=== PATIENT | female | born 1960 | race Caucasian/White ===

== ENCOUNTER → 2020-09-17 10:12 | Outpatient (CLI) | payer OTHER, SELFPAY ==
[2020-09-17 23:58] LABS: SARS-CoV-2 RNA PCR Negative
== END ==
PROVIDERS: PCP Family Medicine; Visit Provider Family Medicine
DX: J20.9 Acute bronchitis, unspecified (principal); Z20.822 Contact with and (suspected) exposure to COVID-19
CPT/HCPCS: C9803; U0003; U0005

== ENCOUNTER 2021-04-21 07:41 | Outpatient (CLI) | payer OTHER, SELFPAY ==
--- NOTE | ~2021-04-21 | MM_ITS ---
EXAMINATION: MM screening vinny BI w eliot HISTORY: Screening mammogram TECHNIQUE: Craniocaudal and mediolateral oblique 3-D tomosynthesis images were obtained and synthetic 2-D images were generated. CAD analysis was submitted and interpreted. COMPARISON: 06/14/2019, 06/01/2018, 05/21/2017 bilateral digital screening mammogram examinations BREAST PARENCHYMAL COMPOSITION: There are scattered areas of fibroglandular density. FINDINGS: There is no evidence of suspicious mass, calcification, or architectural distortion to sugg est malignancy in either breast. There has been no suspicious interval change. IMPRESSION: 1. No mammographic evidence of malignancy. 2. Recommend routine screening mammography in one year. BI-RADS Category 1: Negative Reviewed, dictated and finalized at location A.
== END 2021-04-21 07:42 | disposition home or self-care (01) ==
LOC: ANHIMG 07:42
PROVIDERS: PCP Family Medicine; Visit Provider Obstetrics & Gynecology
DX: Z12.31 Encounter for screening mammogram for malignant neoplasm of breast (principal)
CPT/HCPCS: 77063; 77067

== ENCOUNTER → 2021-07-29 10:08 | Outpatient (CLI) | payer OTHER, SELFPAY ==
--- NOTE | ~2021-07-29 | XR_ITS ---
EXAMINATION: XR hand RT min 3V EXAM DATE: 07/29/2021 10:22 INDICATION: Pain in right hand in area of 2 3 MP joints/no known trauma. TECHNIQUE: Right hand frontal, lateral and oblique projections obtained and reviewed. There is no pr ior study for comparison. FINDINGS: Right metacarpal bones are unremarkable. There is mild to moderate 3rd MCP, mild 2nd MCP p rimary osteoarthritis. There are no bony erosions identified. There are no acute fractures or disloc ations identified. There is no subcutaneous gas. The soft tissue is unremarkable. There are no ra diopaque foreign bodies. 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 Reviewed, dictated and finalized at location A. K PRESS OPERATOR
== END ==
PROVIDERS: PCP Family Medicine; Visit Provider Family Medicine
DX: M19.041 Primary osteoarthritis, right hand (principal)
CPT/HCPCS: 73130

== ENCOUNTER → 2022-02-24 10:06 | Outpatient (CLI) | payer OTHER, SELFPAY ==
--- NOTE | ~2022-02-24 | XR_ITS ---
EXAMINATION: XR chest 2V DATE: 02/24/2022 10:24 INDICATION: Chronic cough. TECHNIQUE: Frontal and lateral views of the chest were obtained. COMPARISON: Chest 2 views 01/27/2016 FINDINGS: A calcified left lung nodule and calcified left hilar lymph nodes are consistent with old g ranulomatous disease. There is mild scarring at the lung apices. No pleural effusion or pneumothorax. The heart size is normal. IMPRESSION: 1. Stable mild scarring at the lung apices. Reviewed, dictated and finalized at location A.
== END ==
PROVIDERS: PCP Family Medicine; Visit Provider Family Medicine
DX: R05.3 Chronic cough (principal); R91.8 Other nonspecific abnormal finding of lung field
CPT/HCPCS: 71046

== ENCOUNTER 2022-03-26 13:24 | Outpatient (CLI) | payer OTHER, SELFPAY ==
--- NOTE | ~2022-03-26 | CT_ITS ---
EXAMINATION: CT lung screening DATE: 03/26/2022 14:58 INDICATION: Tobacco dependence TECHNIQUE: Computed tomography (CT) of the chest was performed without intravenous contrast. The dose -length product was 429.73 mGy-cm. Automated exposure control and iterative reconstruction technique were employed. COMPARISON: CT dated 05/06/2015 FINDINGS: No thoracic lymphadenopathy. Heart size is normal. No significant pleural or pericardial ef fusion. There is atherosclerosis of the aorta and coronary arteries. The upper abdomen is unremarkabl e. Stable fissural nodule on the right measuring 5 mm. Stable apical scarring and parenchymal nodules measuring 5 mm or less. There are calcified granulomas in the left lower lung. There are left-sided fissural nodules measuring 3 mm stable 3 mm left lower lobe nodule. No endobronchial lesions. No pneu mothorax. No focal airspace consolidation. IMPRESSION: 1. Lung-RADS category 2: Benign appearance or behavior. Continue annual screening with noncontrast lo w-dose chest CT in 12 months. Reviewed, dictated and finalized at location A. IMPRESSION: 1. Lung-RADS category 2: Benign appearance or behavior. Continue annual screeni ng with noncontrast low-dose chest CT in 12 months.
--- NOTE | 2022-03-26 16:12 | WPDPFTINT ---
PFT Procedure Performed PFT Procedure Performed Spirometry with Pre/Post Bronchodilator Plethysmography (Lung Vol) Diffusing Cap (DLCO) Flow Vol Loop PFT Interpretation This is a pulmonary function test with pre and post-bronchodilator spirometry, plethysmography and diffusing capacity. The test was performed and results interpreted in accordance with the 2019 and 2005 ATS/ERS Task Force guidelines respectively using the Global Lung Function Initiative-2012 reference equations. Patient demonstrated good effort and cooperation. Reproducibility criteria were met. The quality of the pre bronchodilator spirometry maneuver was Grade A and post bronchodilator spirometry maneuver was Grade A. Findings: Spirometry: There is decreased maximal expiratory airflow at low lung volumes with concave expiratory flow tracing. The contour the inspiratory flow tracing is normal. The pre bronchodilator FVC is 3.50 L, 114% predicted. The pre bronchodilator FEV1 is 2.26 L, 93% predicted. The pre bronchodilator FEV1: FVC ratio 65%. The post bronchodilator FVC is 3.58 L, representing a 2% increase. The post bronchodilator FEV1 is 2.28 L, representing 1% increase. The post bronchodilator FEV1: FVC ratio 64%. Plethysmography: The total lung capacity is 3.93 L, 80% predicted. The functional residual capacity is 1.71 L, 62% predicted. The residual volume is 0.43 L, 22% predicted. Diffusion capacity: The diffusion capacity unadjusted for hemoglobin and carboxyhemoglobin is 18.3, 86% predicted. The diffusing capacity adjusted for alveolar volume is 3.96, 88% predicted. Impression: There is a mild obstructive abnormality with a normal FEV1 and without significant improvement after inhaling a single dose of albuterol. The total lung capacity and functional residual capacity are normal with a decreased residual volume. This is an abnormal but nonspecific lung volume pattern. The DLCO is normal. There are no prior studies for comparison
== END 2022-03-26 13:25 | disposition home or self-care (01) ==
LOC: ANHPFT 13:25
PROVIDERS: PCP Family Medicine; Visit Provider Physician Assistant
DX: J44.9 Chronic obstructive pulmonary disease, unspecified (principal); R05.3 Chronic cough; Z87.891 Personal history of nicotine dependence; R94.2 Abnormal results of pulmonary function studies
CPT/HCPCS: 71271; 94060; 94726; 94729

== ENCOUNTER 2022-08-13 10:16 | Outpatient (CLI) | payer OTHER, SELFPAY ==
--- NOTE | 2022-08-13 10:30 | ECG_ITS ---
Measurements Intervals [place] Rate: 72 P: 54 CA: 161 QRS: 22 QRSD: 84 T: 40 QT: 376 QTc: 412 Interpretive Statements SINUS RHYTHM NO PREVIOUS ECG AVAILABLE FOR COMPARISON Electronically Signed On 08-13-2022 15:44:49 SENIOR LINUX ENGINEER by Clarence Wei M.D.
== END 2022-08-13 10:17 | disposition home or self-care (01) ==
PROVIDERS: PCP Family Medicine; Visit Provider Podiatrist Foot & Ankle Surgery
DX: Z01.810 Encounter for preprocedural cardiovascular examination (principal); E78.2 Mixed hyperlipidemia; I10 Essential (primary) hypertension; Z87.891 Personal history of nicotine dependence
CPT/HCPCS: 93005

== ENCOUNTER 2022-08-21 02:11 | Day surgery (SDC) | payer OTHER, SELFPAY ==
[2022-08-11 08:47] VITALS: BMI 26.6
--- NOTE | 2022-08-11 08:51 | PC.NURSE ---
Report to the Outpatient Waiting Room, entrance under the green pavilion located off [facility], at time 6:30 on date 08/21/22. Planned Procedure Time: 8:30. Time changes happen often and if your time is changed the preop area will call you the afternoon before. - You and your visitor will be asked to self-screen and do not enter if you have any COVID symptoms. - Only one visitor is requested with a max of two and NO children visitors are allowed at this time. - The patient visitor may be requested to leave or wait in car when not with patient due to distancing restrictions. - A mask is optional within the hospital at this time. Patients may have clear liquids (water, carbonated beverages, clear teas, apple juice) until 3 hours prior to surgery (5:30) with a maximum of 20 ounces. - No food from midnight until time of surgery Take the following medications with a SIP of water the morning of surgery: XANAX IF NEEDED, ABILIFY, BUPROPION, BUSPIRONE, LEVOTHYROXINE, NALTREXONE, INHALERS DO NOT STOP ANY OF YOUR OTHER PRESCRIPTION MEDICATIONS PRIOR TO SURGERY EXCEPT THE FOLLOWING Medications to discontinue per physician: VITAMINS/SUPPLEMENTS Date to take last dose: 08/17/[address] OMER Please no make-up, nail malagasy, hairspray, perfume, deodorant, or body powder the day of surgery. No jewelry (including any body piercings) or valuables the day of surgery, leave them at home. Please take a shower or bath the night before, or the morning of, surgery with an antibacterial soap. Wear comfortable, loose fitting clothing. - Jewelry must be removed prior to entering the operating room. Rings and piercings that are not removed may be cut off. - The hospital will not accept responsibility for valuables. - Please leave all valuables, including medications, at home the day of surgery. If you are going home after surgery, a licensed hack driver must drive you home. - NO public transportation without another adult if you receive anesthesia. - We recommend that an adult stay with you for 24 hours following discharge. - We also recommend that you do not drive, make important decision, drink alcoholic beverages, or take any drugs that were not prescribed by your health care provider for at least 24 hours after your discharge time. Follow any additional instructions given to you from your surgeon. If you or anyone in your household have experienced Covid symptoms in the past week, please notify your surgeon or the nurse liaison at the phone number below for possible testing. Telephone instructions given to CHIN DUONG and asked if any additional questions and then verbalized understanding. Patient advised to call surgeon office or pre surgery nurse liaison [phone] if any additional questions.
--- NOTE | 2022-08-20 09:57 | WPDANESEPPF ---
Anes - Initial Pre Proc Eval Procedure: Operation Date: 08/21/22 07:30 Proposed Procedures p Arthrodesis of First Metatarsophalangeal Joint Left Foot, - Aldo Ballard JR, MD s Fifth Metatarsal Head Resection Left Foot - Aldo Ballard JR, MD Date/Time: 08/20/22 09:57 Surgeon: Aldo Ballard JR, MD Pre Op Diagnosis: arthritic bunion lft foot, bunionectomy deformity Patient Data Age: 61 Gender: F Height: 1.6 m Weight: 68.1 kg Allergies Allergy/AdvReac Type Severity Reaction Status Date / Time levofloxacin Allergy Mild leg pain Verified 08/21/22 06:38 Home Medications Medication Instructions Recorded Confirmed Type fluticasone propionate 50 1 spray intranasal BID 05/05/19 08/11/22 History mcg/actuation nasal spray,suspension (Flonase Allergy Relief) cetirizine 10 mg tablet (All Day 10 mg PO DAILY PRN allergy symptoms 01/03/20 08/21/22 History Allergy (cetirizine)) cyanocobalamin (vitamin B-12) 1,000 mcg PO DAILY 02/06/21 08/21/22 History 1,000 mcg tablet cholecalciferol (vitamin D3) 125 5,000 unit PO DAILY 02/26/21 08/21/22 History mcg (5,000 unit) capsule meloxicam 15 mg tablet 15 mg PO DAILY PRN pain #30 tabs 07/29/21 08/21/22 Rx bupropion HCl 300 mg 24 hr tablet, 300 mg PO QAM #90 tabs 08/11/21 08/21/22 Rx extended release (Wellbutrin XL) alprazolam 0.5 mg tablet 0.5 mg PO TID PRN anxiety #90 tabs 01/28/22 08/21/22 Rx aripiprazole 2 mg tablet (Abilify) 2 mg PO DAILY #30 tabs 04/29/22 08/21/22 Rx atorvastatin 10 mg tablet 10 mg PO DAILY #90 tabs 04/29/22 08/21/22 Rx bupropion HCl 150 mg 24 hr tablet, 150 mg PO QAM 04/29/22 08/21/22 History extended release (Wellbutrin XL) buspirone 15 mg tablet 15 mg PO BID #180 tabs 04/29/22 08/21/22 Rx irbesartan 150 mg tablet 150 mg PO DAILY #90 tabs 04/29/22 08/21/22 Rx levothyroxine 50 mcg tablet 50 mcg PO . q.a.m. #90 tabs 04/29/22 08/21/22 Rx albuterol sulfate 90 mcg/actuation 2 inh inhalation QID PRN shortness 06/19/22 08/21/22 Rx aerosol inhaler of breath or wheezing #25.5 grams naltrexone 50 mg tablet 50 mg PO DAILY 07/07/22 08/21/22 History tiotropium 2.5 mcg-olodaterol 2.5 2 puff inhalation DAILY #12 grams 08/07/22 08/11/22 Rx mcg/actuation mist for inhalation (Stiolto Respimat) ECG: Date of Service: 08/13/22 Procedure(s): CA 12 lead EKG Accession Number(s): [id number] cc: ~ ? Measurements Intervals? [place]? Rate: ? 72 ? P:? 54 MA: ? 161? QRS:? 22 QRSD: ? 84 ? T:? 40 QT: ? 376? QTc:? 412? Interpretive Statements SINUS RHYTHM NO PREVIOUS ECG AVAILABLE FOR COMPARISON Electronically Signed On 08-13-2022 15:44:49 NEIGHBORHOOD AIDE by Clarence Wei M.D. Patient hx anesthesia problems: none Family hx anesthesia problems: none Results Review: All pre-operative results and documents have been reviewed as part of the pre-operative evaluation. [facility] Past Medical History Medical History (Updated 04/20/22 @ 08:05 by Bakari Mercedes MD) Abnormal fasting glucose (08/04/21) glucose 104 on 08/04/2021 Acute bronchitis Acute non-recurrent maxillary sinusitis BMI 25.0-25.9,adult BMI 27.0-27.9,adult Boils of multiple sites (~09/2021) Bunion of great toe of right foot Cellulitis of left foot Chronic anxiety Chronic cough PFT 03/26/2022 with mild obstructive defect without improvement with bronchodilator. chest x-ray on 02/14/2022 with stable mild scarring of the apices with old granulomatous disease with calcified lung nodule and left hilar lymph node, unchanged. Chronic depression COPD (chronic obstructive pulmonary disease) Essential (primary) hypertension Gross hematuria Hallux valgus with bunions of left foot Hypercalcemia (02/25/21) calci
--- NOTE | 2022-08-20 09:58 | WPDANESPNB ---
Anes - Peripheral Nerve Block Date/Time: 08/20/22 09:58 I have discussed with the patient/family/POA the placement of a peripheral nerve block for post-operative pain management, including associated risks, benefits, complications, and side effects. Alternative methods of post-operative analgesia were detailed. Questions were solicited and answers provided to the satisfaction of the patient/family/POA. Time-Out: A pre-procedural Time-Out was completed immediately before starting the procedure and confirmed: Patient Identification, Site, Procedure, Patient Position and the Availability of Requisite Equipment. Clinical Indications: Acute post-operative pain management requested by the operative surgeon. Nerve Block Insertion Note Anes-nerve block: posterior fossa sciatic (20cc) Patient position: supine Skin prep: chlorhexidine Needle: 22 gauge, stimulating, insulated echogenic needle. Needle length: 80 mm Technique: ultrasound (in plane) Injectate: bupivacaine 0.25% with epi 5 mcg/ml (20cc) Observations: tolerated well Complications: none Procedure start time:: 725 Procedure end time:: 730
[2022-08-21] VITALS (8 sets, daily range): BP systolic 101–125; BP diastolic 59–77; PULSE 62–77; RESP 13–20; TEMP 36.4–36.7; O2SAT 95–100
--- NOTE | ~2022-08-21 | XR_ITS ---
EXAMINATION: XR surgery orthopedic DATE: 08/21/2022 08:41 INDICATION: Left foot arthrodesis TECHNIQUE: 2 fluoroscopic images of the left forefoot were obtained during procedure performed by Dr. Ballard. Radiologist was not present for the imaging or procedure. The amount of fluoroscopy time u sed during this procedure was 0.1 minutes. COMPARISON: None. FINDINGS: First metatarsophalangeal arthrodesis with dorsal plate and screw fixation which is in near-anatomic alignment. In addition there are osteotomies at the medial head of the first metatarsal and involving the head of the fifth metatarsal with small amount of soft tissue gas at the operative beds. Cortica l thickening consistent with old healed fracture at the proximal diaphysis of the second metatarsal. No acute fracture. IMPRESSION: 1. Fluoroscopy utilized during osteotomies at the heads of the first and fifth metatarsals and first metatarsophalangeal instrumented arthrodesis. See procedure note for further detail. Reviewed, dictated and finalized at location A. RUMENT TECH IMPRESSION: 1. Fluoroscopy utilized during osteotomies at the heads of the first and fifth metatarsals and first metatarsophalangeal instrumented arthrodesis. See procedu re note for further detail.
[2022-08-21] MEDS: LACTATED RINGERS 1,000 ML 30 ML IV CONT (07:01)
--- NOTE | 2022-08-21 07:20 | SUR.PREOP ---
instructed spouse on injection of lovenox,and given paper instruction sheet.
--- NOTE | 2022-08-21 07:35 | WPDHPUPDATE1 ---
History and Physical Update Update Date/Time: 08/21/22 07:35 History and Physical has been reviewed, including an updated exam of the patient. There are NO changes in the patient's condition. Risks, benefits, and alternatives have been discussed and questions answered. Patient agrees to proceed with procedure.
[2022-08-21] MEDS: ceFAZolin 2 GM/D5W 50 ML 2 GM/50 ML BAG IVPB (07:38)
--- NOTE | 2022-08-21 09:02 | W.PM.PROC2 ---
Procedure Note - Detailed Date of Procedure 08/21/22 Pre-op Diagnosis 1. Arthritic bunion left foot 2. Tailor's bunion deformity left foot Post-op Diagnosis Same Procedure Performed 1. Arthrodesis of the first metatarsal phalangeal joint left foot 2. Fifth metatarsal head resection left foot Surgeon Aldo Ballard JR, JHOAN Anesthesia General and Regional Indications Painful left forefoot Findings Joint degeneration especially along the medial aspect of the first metatarsal phalangeal joint left foot Description of Procedure PROCEDURE IN DETAIL: Under mild sedation, the patient was brought into the operating room, placed on the operating table in supine position. A pneumatic ankle tourniquet was placed about the patient's ipsilateral ankle. Following general anesthesia and a popliteal fossa block, the foot was then scrubbed, prepped, and draped in the usual aseptic manner. An Esmarch bandage was then used to exsanguinate the patient's foot and the pneumatic ankle tourniquet was then inflated. Surgery began in the following manner: Attention was directed to the dorsal medial aspect of the 1st metatarsophalangeal joint where there was a severe hallux valgus deformity noted with a prominent first metatarsal phalangeal joint. The incision was made starting along the central shaft of the 1st metatarsal and extending just proximal to the interphalangeal joint of the hallux. The incision was continued deep down through the subcutaneous tissues using sharp and blunt dissection. All bleeders were cauterized as necessary. At this point, the dissection was continued down to the level of the periosteum and capsular structures overlying the 1st metatarsophalangeal joint. A full length periosteum and capsular incision was made just medial to the extensor hallucis longus tendon. The periosteum and capsular structures were freed from the base of the proximal phalanx as well as the distal 1st metatarsal. At this point, the 1st metatarsophalangeal joint was identified. There was loss of articular cartilage to the head of the 1st metatarsal as well as the base of the proximal phalanx worse medially. There was significant broadening and hypertrophy of the 1st metatarsophalangeal joint. Utilizing a sagittal bone saw, the hypertrophied 1st metatarsal was resected dorsally, medially, and laterally. A power bur was used to make sure that there were no rough edges and also to further debride the hypertrophic 1st metatarsal. Next, a rongeur was used to resect the hypertrophic base of the proximal phalanx. At this point, the reamer system for the VIOlifeCK system was used to denude the degenerative cartilage from the head of the 1st metatarsal as well as the base of the proximal phalanx. The cartilage and subchondral bone were fully debrided utilizing the reamer system until healthy bleeding bone was noted. I flushed the surgery site with copious amounts of sterile saline. Next, a 2-0 drill bit was used to further fenestrate the head of the 1st metatarsal as well as the base of the proximal phalanx in order to allow fusion across the 1st metatarsophalangeal joint. Next, a 0.045 inch K-wire was driven from the medial aspect of the base of the proximal phalanx into the head of the 1st metatarsal in order to serve as temporary fixation. A large steel plate was used to make sure that the hallux was in a rectus position both in the sagittal plane as well as the frontal and transverse plane. Excellent position of the hallux was noted. Next, a CrossCHECK plate was placed atop the 1st metatarsophalangeal joint held in position with [place] wires. Utilizing standard principles and techniques, the 2 distal drill holes were drilled and two 2.7mm mm fully-threaded locking screws were driven from dorsal to plantar holding the distal aspect of the plate intact. At this point, a 3.5mm lag screw was driven from dorsal distal to proximal plantar across the 1s
[2022-08-21] MEDS: fentaNYL CITRATE INJ (*CRX) 100 MCG/2 ML VIAL 25 MCG IV PUSH ×2 (09:07→09:26)
[2022-08-21] MEDS: oxyCODONE HCL (*CRX) 5 MG TAB IR PO (10:13)
== END 2022-08-21 10:54 | disposition home or self-care (01) ==
PROVIDERS: PCP Family Medicine; Visit Provider Podiatrist Foot & Ankle Surgery
PROC: (CPT 28750; principal; 2022-08-21 07:30)
PROC: (CPT 28104; 2022-08-21 07:30)
DX: M21.612 Bunion of left foot (principal); M21.622 Bunionette of left foot; G89.18 Other acute postprocedural pain; J44.9 Chronic obstructive pulmonary disease, unspecified; I10 Essential (primary) hypertension; E03.9 Hypothyroidism, unspecified; E78.2 Mixed hyperlipidemia; D51.3 Other dietary vitamin B12 deficiency anemia; F41.9 Anxiety disorder, unspecified; Z79.51 Long term (current) use of inhaled steroids; Z87.891 Personal history of nicotine dependence
CPT/HCPCS: 28750; 28113; 64445; 93005; 99199; A9270; C1713; J0690; J1100; J1885; J2250; J2405; J2704; J3010; J7120

== ENCOUNTER 2023-01-08 03:36 | Day surgery (SDC) | payer OTHER, SELFPAY ==
[2023-01-01 12:00] VITALS: BMI 27.2
[2023-01-08 08:23] VITALS: BP 154/72; PULSE 76; RESP 18; TEMP 36.6; O2SAT 96
[2023-01-08] MEDS: LACTATED RINGERS 1,000 ML 150 ML IV CONT (08:31)
--- NOTE | 2023-01-08 09:13 | PM.HPGS ---
History of Present Illness History of Present Illness Consent: Risks, benefits, and alternatives have been discussed and questions answered. Patient agrees to proceed with procedure. Chief complaint: family hx colon ca Narrative: Siria Connor is a 62 year old female Presents for screening colonoscopy. Patient's current weight appetite and bowel movements are normal. Patient denies abdominal pain. She has had no bleeding. Family history is significant both father and brother have had colon cancer. Patient presents today for neoplasia screening colonoscopy. Review of Systems Review of Systems: Review of systems noncontributory. [facility] Past Medical History Medical History (Updated 10/27/22 @ 10:24 by Bozena Avila) Abnormal fasting glucose (08/04/21) glucose 104 on 08/04/2021 Acute bronchitis Acute non-recurrent maxillary sinusitis BMI 25.0-25.9,adult BMI 27.0-27.9,adult BMI 28.0-28.9,adult Boils of multiple sites (~09/2021) Breast cancer screening by mammogram Bunion of great toe of right foot Cellulitis of left foot Chronic anxiety Chronic cough PFT 03/26/2022 with mild obstructive defect without improvement with bronchodilator. chest x-ray on 02/14/2022 with stable mild scarring of the apices with old granulomatous disease with calcified lung nodule and left hilar lymph node, unchanged. 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 Calcium normal at 9.4 with ionized calcium 5.0 and PTH normal at 25 on 03/06/2021.Calcium normal at 9.9 on 08/04/2021. Hypokalemia Hypothyroidism, unspecified TSH 1.98, free T4 1.3 on 08/04/2021 Mixed hyperlipidemia Total cholesterol 165, triglycerides 55, HDL 102, LDL 49 on 08/04/2021. Overweight (BMI 25.0-29.9) Pain in right hand moderate osteoarthritis of the MCP joints of the index and middle finger on x-ray 07/29/2021 Seasonal allergic rhinitis Vitamin B12 deficiency anemia vitamin B12 1004 with hemoglobin 13.6 on 08/04/2021 Vitamin D deficiency, unspecified DEXA bone density on 06/14/2019 normal with T-score -1.0 of the spine and 0 at the hips. Vitamin-D level normal at 36 on 03/06/2021 Family History Family History Grandparent Family history of tuberculosis Acute myocardial infarction Family history of malignant neoplasm Carcinoma of colon Mother Patient's mother is in good health Family history of dementia Father Acute myocardial infarction Carcinoma of colon, Onset Age: 56 Sibling Family history of malignant neoplasm, Onset Age: 36 Social History Social History (Updated 04/29/22 @ 08:13 by Mary Shepard MA) Smoking packs per day: 3 Smoking cigarettes per day: 60.0 Years smoked: 40 Smoking pack-years: 120.00 Smoking status: Former smoker Tobacco type: cigarettes Smoking end date: 07/05/07 Alcohol intake: former Alcohol use details: quit 6 months ago Substance use: current Substance use type: marijuana Last use: Daily Lack of Transportation: No Lack of Food: Never True Current Housing: I Have Housing Concerned About Future Housing: No Difficulty Paying Gas/Electric Bills: No Difficulty Paying for Meds: No Currently Unemployed: No Education: High School Diploma/GED Difficulty w/ Childcare or Family Care: No Living arrangements: with family Spiritual care concerns: No Meds Home Medications and Allergies Home Medications Medication Instructions Recorded Confirmed Type cetirizine 10 mg tablet (All Day 10 mg PO DAILY PRN allergy symptoms 01/03/20 01/01/23 History Allergy (cetirizine)) cyanocobalamin (vitamin B-12) 1,000 mcg PO DAILY 02/06/21 01/01/23 History 1,000 mcg tablet cholecalciferol (vitamin D3) 125 5,000 unit PO DAILY
--- NOTE | 2023-01-08 09:28 | WPDANESEPPF ---
Anes - Initial Pre Proc Eval Procedure: Operation Date: 01/08/23 09:30 Proposed Procedures p Colonoscopy - Rayshawn Tomas MD Date/Time: 01/08/23 09:28 Surgeon: Rayshawn Tomas MD Pre Op Diagnosis: family hx colon ca Patient Data Age: 62 Gender: F Height: 1.6 m Weight: 69.5 kg Last Vital Signs Temp 97.8 F 01/08/23 08:23 Pulse 76 01/08/23 08:23 Resp 18 01/08/23 08:23 BP 154/72 H 01/08/23 08:23 Pulse Ox 96 01/08/23 08:23 O2 Del Method Room Air 01/08/23 08:23 Allergies Allergy/AdvReac Type Severity Reaction Status Date / Time levofloxacin Allergy Mild leg pain Verified 01/08/23 08:21 Home Medications Medication Instructions Recorded Confirmed Type cetirizine 10 mg tablet (All Day 10 mg PO DAILY PRN allergy symptoms 01/03/20 01/01/23 History Allergy (cetirizine)) cyanocobalamin (vitamin B-12) 1,000 mcg PO DAILY 02/06/21 01/01/23 History 1,000 mcg tablet cholecalciferol (vitamin D3) 125 5,000 unit PO DAILY 02/26/21 01/01/23 History mcg (5,000 unit) capsule bupropion HCl 300 mg 24 hr tablet, 300 mg PO QAM #90 tabs 08/11/21 01/01/23 Rx extended release (Wellbutrin XL) aripiprazole 2 mg tablet (Abilify) 2 mg PO DAILY #30 tabs 04/29/22 01/01/23 Rx atorvastatin 10 mg tablet 10 mg PO DAILY #90 tabs 04/29/22 01/01/23 Rx bupropion HCl 150 mg 24 hr tablet, 150 mg PO QAM 04/29/22 01/01/23 History extended release (Wellbutrin XL) buspirone 15 mg tablet 15 mg PO BID #180 tabs 04/29/22 01/01/23 Rx irbesartan 150 mg tablet 150 mg PO DAILY #90 tabs 04/29/22 01/01/23 Rx albuterol sulfate 90 mcg/actuation 2 inh inhalation QID PRN shortness 06/19/22 01/01/23 Rx aerosol inhaler of breath or wheezing #25.5 grams naltrexone 50 mg tablet 50 mg PO DAILY 07/07/22 01/01/23 History tiotropium 2.5 mcg-olodaterol 2.5 2 puff inhalation DAILY #12 grams 08/07/22 01/01/23 Rx mcg/actuation mist for inhalation (Stiolto Respimat) levothyroxine 50 mcg tablet 50 mcg PO . q.a.m. #90 tabs 11/03/22 01/08/23 Rx alprazolam 0.5 mg tablet 0.5 mg PO TID PRN anxiety #90 tabs 12/28/22 01/08/23 Rx calcium carbonate 600 mg calcium 600 mg PO DAILY 01/01/23 01/01/23 History (1,500 mg) tablet (Calcium) multivitamin with minerals-folic 1 tablet PO DAILY 01/01/23 01/01/23 History acid 0.4 mg tablet Patient hx anesthesia problems: none Family hx anesthesia problems: none Results Review: All pre-operative results and documents have been reviewed as part of the pre-operative evaluation. [facility] Past Medical History Medical History (Updated 10/27/22 @ 10:24 by Bozena Avila) Abnormal fasting glucose (08/04/21) glucose 104 on 08/04/2021 Acute bronchitis Acute non-recurrent maxillary sinusitis BMI 25.0-25.9,adult BMI 27.0-27.9,adult BMI 28.0-28.9,adult Boils of multiple sites (~09/2021) Breast cancer screening by mammogram Bunion of great toe of right foot Cellulitis of left foot Chronic anxiety Chronic cough PFT 03/26/2022 with mild obstructive defect without improvement with bronchodilator. chest x-ray on 02/14/2022 with stable mild scarring of the apices with old granulomatous disease with calcified lung nodule and left hilar lymph node, unchanged. 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 Calcium normal at 9.4 with ionized calcium 5.0 and PTH normal at 25 on 03/06/2021.Calcium normal at 9.9 on 08/04/2021. Hypokalemia Hypothyroidism, unspecified TSH 1.98, free T4 1.3 on 08/04/2021 Mixed hyperlipidemia Total cholesterol 165, triglycerides 55, HDL 102, LDL 49 on 08/04/2021. 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
[2023-01-08 10:18] VITALS: BP 138/66; PULSE 80; RESP 26; O2SAT 99
[2023-01-08 10:28] VITALS: BP 134/53; PULSE 80; RESP 16; O2SAT 98
[2023-01-08 10:38] VITALS: BP 146/78; PULSE 79; RESP 21; O2SAT 100
== END 2023-01-08 10:45 | disposition home or self-care (01) ==
PROVIDERS: PCP Family Medicine; Visit Provider Internal Medicine Gastroenterology
PROC: 0DJD8ZZ Inspection of Lower Intestinal Tract, Via Natural or Artificial Opening Endoscopic (ICD-10-PCS; CPT 45378; principal; 2023-01-08 09:30)
DX: Z12.11 Encounter for screening for malignant neoplasm of colon (principal); K63.5 Polyp of colon; K64.8 Other hemorrhoids; K57.30 Diverticulosis of large intestine without perforation or abscess without bleeding; Z80.0 Family history of malignant neoplasm of digestive organs; J44.9 Chronic obstructive pulmonary disease, unspecified; F41.9 Anxiety disorder, unspecified; F32.A Depression, unspecified; I10 Essential (primary) hypertension; E03.9 Hypothyroidism, unspecified; E78.2 Mixed hyperlipidemia; D51.3 Other dietary vitamin B12 deficiency anemia; E55.9 Vitamin D deficiency, unspecified; Z87.891 Personal history of nicotine dependence; Z79.51 Long term (current) use of inhaled steroids
CPT/HCPCS: 45385; 88305; J2001; J2704; J7120

== ENCOUNTER 2023-02-02 13:33 | Emergency (ER) | payer OTHER, SELFPAY ==
--- NOTE | ~2023-02-02 | XR_ITS ---
EXAMINATION: XR chest 2V DATE: 02/02/2023 14:06 INDICATION: Productive cough. Shortness of breath. TECHNIQUE: Frontal and lateral views of the chest were obtained. COMPARISON: Chest 2 views 02/24/2022, chest CT 03/26/2022 FINDINGS: There is mild scarring at the lung apices. A calcified left lung nodule and calcified left hilar lymph nodes are consistent with old granulomatous disease. No pleural effusion or pneumothorax without size is normal. IMPRESSION: 1. Stable mild scarring at the lung apices. Reviewed, dictated and finalized at location A.
--- NOTE | 2023-02-02 13:37 | ED.URI ---
HPI - URI/Sore Throat General Chief Complaint: Upper Respiratory Infection Stated Complaint: cough,sob Time Seen by Provider: 02/02/23 13:37 Source: patient Mode of arrival: ambulatory Limitations: no limitations History of Present Illness HPI Narrative: Lee Ann is a 62-year-old female patient presenting to the clinic today with complaints of cough, productive cough with yellow phlegm, chest tightness, and shortness of breath on exertion x4 weeks. She reports she called her primary care provider 3 weeks ago and cap prescription for Tessalon Perles. She reports that the Tessalon Perles do not seem to be helping. She has also been using her albuterol inhaler this not helping with the shortness of breath. Former smoker. History of COPD. SpO2 is 96% on room air MD elicited complaint: sore throat and nasal congestion Related Data Home Medications Medication Instructions Recorded Confirmed cetirizine 10 mg tablet (All Day 10 mg PO DAILY PRN allergy symptoms 01/03/20 02/02/23 Allergy (cetirizine)) cyanocobalamin (vitamin B-12) 1,000 mcg PO DAILY 02/06/21 02/02/23 1,000 mcg tablet cholecalciferol (vitamin D3) 125 5,000 unit PO DAILY 02/26/21 02/02/23 mcg (5,000 unit) capsule naltrexone 50 mg tablet 50 mg PO DAILY 07/07/22 02/02/23 calcium carbonate 600 mg calcium 600 mg PO DAILY 01/01/23 02/02/23 (1,500 mg) tablet (Calcium) multivitamin with minerals-folic 1 tablet PO DAILY 01/01/23 02/02/23 acid 0.4 mg tablet Allergies Allergy/AdvReac Type Severity Reaction Status Date / Time levofloxacin AdvReac Mild leg pain Verified 02/02/23 13:58 Review of Systems Review of Systems: Pertinent positives per HPI. Patient denies any fever, chills, rash, headache, visual changes, dizziness, chest pain, palpitations, nausea, vomiting, diarrhea, constipation, abdominal pain, or any urinary issues. [facility] Past Medical History Medical History Abnormal fasting glucose (08/04/21) glucose 104 on 08/04/2021. Fasting glucose 102 with hemoglobin A1c 5.0 on 12/14/2022. Acute bronchitis Acute non-recurrent maxillary sinusitis BMI 25.0-25.9,adult BMI 27.0-27.9,adult BMI 28.0-28.9,adult Boils of multiple sites (~09/2021) Breast cancer screening by mammogram Bunion of great toe of right foot Cellulitis of left foot Chronic anxiety Chronic cough PFT 03/26/2022 with mild obstructive defect without improvement with bronchodilator. chest x-ray on 02/14/2022 with stable mild scarring of the apices with old granulomatous disease with calcified lung nodule and left hilar lymph node, unchanged. 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 Calcium normal at 9.4 with ionized calcium 5.0 and PTH normal at 25 on 03/06/2021.Calcium normal at 9.9 on 08/04/2021. Hypokalemia Hypothyroidism, unspecified TSH 1.98, free T4 1.3 on 08/04/2021. TSH 1.27 with free T4 1.3 on 12/14/2022. Mixed hyperlipidemia Total cholesterol 165, triglycerides 55, HDL 102, LDL 49 on 08/04/2021. Total cholesterol 138, triglycerides 70, HDL 69, LDL 54 with ratio 2.0 on 12/14/2022. 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 Seasonal allergic rhinitis Vitamin B12 deficiency anemia vitamin B12 1004 with hemoglobin 13.6 on 08/04/2021. Level normal at 1193 with folic acid 13.4 and hemoglobin 12.9 on 12/14/2022. Vitamin D deficiency, unspecified DEXA bone density on 06/14/2019 normal with T-score -1.0 of the spine and 0 at the hips. Vitamin-D level normal at 36 on 03/06/2021. Level normal at 33 on 12/14/2022. Family History Family Histor
[2023-02-02 13:49] VITALS: BP 112/79; PULSE 90; RESP 18; TEMP 36.9; O2SAT 96
[2023-02-02] MEDS: IPRATROPIUM BR 0.02% INH SOLN 0.5 MG/2.5 ML VIAL INHALATION (14:07)
[2023-02-02] MEDS: ALBUTEROL SULFATE NEB 2.5 MG/3 ML INH INHALATION (14:08)
[2023-02-02 14:10] VITALS: PULSE 90; RESP 18; O2SAT 96
[2023-02-02 14:22] VITALS: PULSE 100; RESP 20; O2SAT 96
== END 2023-02-02 14:24 | disposition home or self-care (01) ==
PROVIDERS: Emergency Provider Nurse Practitioner Family; PCP Family Medicine
DX: J44.1 Chronic obstructive pulmonary disease with (acute) exacerbation (principal); Z87.891 Personal history of nicotine dependence; I10 Essential (primary) hypertension; E03.9 Hypothyroidism, unspecified; E78.2 Mixed hyperlipidemia; E53.8 Deficiency of other specified B group vitamins; E55.9 Vitamin D deficiency, unspecified
CPT/HCPCS: 71046; 94640; 99213; G0463

== ENCOUNTER 2023-03-29 13:05 | Outpatient (CLI) | payer OTHER, SELFPAY ==
--- NOTE | ~2023-03-29 | CT_ITS ---
EXAMINATION: CT lung screening DATE: 03/29/2023 13:29 INDICATION: Personal history of nicotine dependence TECHNIQUE: Computed tomography (CT) of the chest was performed without intravenous contrast. The dose -length product was 66.65 mGy-cm. Automated exposure control and iterative reconstruction technique w ere employed. COMPARISON: CT dated 03/26/2022 FINDINGS: No significant pleural or pericardial effusion. No thoracic lymphadenopathy. No thoracic ly mphadenopathy. There is evidence for chronic granulomatous disease of the mediastinum and lung parenc hyma. There is atherosclerosis of the aorta and coronary arteries. Heart size normal. No significant pleural or pericardial effusion. There are stable upper lobe nodules measuring 4 mm or less. Stable r ight fissural nodule measuring 5 mm. Stable 3 mm left lower lobe nodule, image 77. Mild thoracic spon dylosis. IMPRESSION: 1. Lung-RADS category 2: Benign appearance or behavior. Continue annual screening with noncontrast lo w-dose chest CT in 12 months. Reviewed, dictated and finalized at location L. IMPRESSION: 1. Lung-RADS category 2: Benign appearance or behavior. Continue annual screeni ng with noncontrast low-dose chest CT in 12 months.
== END 2023-03-29 13:06 | disposition home or self-care (01) ==
PROVIDERS: PCP Family Medicine; Visit Provider Internal Medicine Critical Care Medicine
DX: Z12.2 Encounter for screening for malignant neoplasm of respiratory organs (principal); Z87.891 Personal history of nicotine dependence
CPT/HCPCS: 71271

== ENCOUNTER 2023-04-02 01:22 | Day surgery (SDC) | payer OTHER, SELFPAY ==
[2023-03-24 14:31] VITALS: BMI 25.7
--- NOTE | 2023-03-24 14:55 | PC.NURSE ---
Report to the Outpatient Waiting Room, entrance under the green pavilion located off [facility], at time __0600_ on date _04/02/23__. Planned Procedure Time: __0730 . Time changes happen often and if your time is changed the preop area will call you the afternoon before. - You and your visitor will be asked to self-screen and do not enter if you have any COVID symptoms. - A mask is optional within the hospital at this time. Patients may have clear liquids (water, carbonated beverages, clear teas, apple juice) until 3 hours prior to surgery with a maximum of 20 ounces. - No food from midnight until time of surgery - Take the following medications with a SIP of water the morning of surgery: _ALPRAZOLAM, ABILIFY, BUPROPRION, BUSPIRONE, INHALERS____ DO NOT STOP ANY OF YOUR OTHER PRESCRIPTION MEDICATIONS PRIOR TO SURGERY ?EXCEPT THE FOLLOWING Medications to discontinue per physician _MULTIVITAMIN AND SUPPLEMENTS Date to take last dose___03/30/23 Please no make-up, nail [place], hairspray, perfume, deodorant, or body powder the day of surgery. No jewelry (including any body piercings) or valuables the day of surgery, leave them at home. Please take a shower or bath the night before, or the morning of, surgery with an antibacterial soap. Wear comfortable, loose fitting clothing. - Jewelry must be removed prior to entering the operating room. Rings and piercings that are not removed may be cut off. - The hospital will not accept responsibility for valuables. - Please leave all valuables, including medications, at home the day of surgery. If you are going home after surgery, a licensed speedboat driver must drive you home. - NO public transportation without another adult if you receive anesthesia. - We recommend that an adult stay with you for 24 hours following discharge. - We also recommend that you do not drive, make important decision, drink alcoholic beverages, or take any drugs that were not prescribed by your health care provider for at least 24 hours after your discharge time. Follow any additional instructions given to you from your surgeon If you or anyone in your household have experienced Covid symptoms in the past week, please notify your surgeon or the nurse liaison at the phone number below for possible testing. Telephone instructions given to _MARIAELENA and asked if any additional questions and then verbalized understanding. Patient advised to call surgeon office or pre surgery nurse liaison [phone] if any additional questions.
[2023-04-02] VITALS (7 sets, daily range): BP systolic 105–163; BP diastolic 53–77; PULSE 57–81; RESP 12–18; TEMP 36.6–36.7; O2SAT 99–100
--- NOTE | ~2023-04-02 | XR_ITS ---
EXAMINATION: XR surgery orthopedic DATE: 04/02/2023 12:23 INDICATION: Right first metatarsophalangeal arthrodesis TECHNIQUE: 2 fluoroscopic images of the right forefoot were obtained during procedure performed by Dr Rakan Ballard. Radiologist was not present for the imaging or procedure. The amount of fluoroscopy time used during this procedure was 0.1 minutes. COMPARISON: None. FINDINGS: Right first metatarsophalangeal arthrodesis with dorsal plate and screw fixation. There is 20 degrees hallux valgus. Clawed fourth toe. No fracture. Remaining joint spaces appear relatively preserved. IMPRESSION: 1. Fluoroscopy utilized during placement right first metatarsophalangeal arthrodesis with dorsal plat e and screw fixation, negative for postoperative purposes. Reviewed, dictated and finalized at location A. IMPRESSION: 1. Fluoroscopy utilized during placement right first metatarsophalangeal arthro desis with dorsal plate and screw fixation, negative for postoperative purposes .
--- NOTE | 2023-04-02 07:17 | W.PM.PROC2 ---
Procedure Note - Detailed Date of Procedure 04/02/23 Pre-op Diagnosis Arthritic bunion right foot Post-op Diagnosis Same Procedure Performed Arthrodesis of the first metatarsal phalangeal joint right foot Surgeon Aldo Ballard JR, JHOAN Anesthesia General and Regional Indications Painful right forefoot Findings Loss of articular joint cartilage from the dorsal medial head of the metatarsal Description of Procedure PROCEDURE IN DETAIL: Under mild sedation, the patient was brought into the operating room, placed on the operating table in supine position. A pneumatic ankle tourniquet was placed about the patient's ipsilateral ankle. Following general anesthesia and a popliteal fossa block the foot and ankle were then scrubbed, prepped, and draped in the usual aseptic manner. An Esmarch bandage was then used to exsanguinate the patient's foot and the pneumatic ankle tourniquet was then inflated. Surgery began in the following manner: Attention was directed to the dorsal aspect of the 1st metatarsophalangeal joint where there was a large subcutaneous prominence noted along the dorsomedial aspect of the joint. The incision was made starting along the central shaft of the 1st metatarsal and extending just proximal to the interphalangeal joint of the hallux. The incision was continued deep down through the subcutaneous tissues using sharp and blunt dissection. All bleeders were cauterized as necessary. At this point, the dissection was continued down to the level of the periosteum and capsular structures overlying the 1st metatarsophalangeal joint. A full length periosteum and capsular incision was made just medial to the extensor hallucis longus tendon. The periosteum and capsular structures were freed from the base of the proximal phalanx as well as the distal 1st metatarsal. At this point, the 1st metatarsophalangeal joint was identified. There was almost complete loss of articular cartilage to the head of the 1st metatarsal especially dorsal medially. There was significant broadening and hypertrophy of the 1st metatarsophalangeal joint. Utilizing a sagittal bone saw, the hypertrophied 1st metatarsal was resected dorsally, medially, and laterally. A power bur was used to make sure that there were no rough edges and also to further debride the hypertrophic 1st metatarsal. Next, a rongeur was used to resect all hypertrophic base of the proximal phalanx. At this point, the reamer system for the [employer] CrossCHECK system was used to denude the degenerative cartilage from the head of the 1st metatarsal as well as the base of the proximal phalanx. The cartilage and subchondral bone were fully debrided utilizing the reamer system until healthy bleeding bone was noted. Next, a 2-0 drill bit was used to further fenestrate the head of the 1st metatarsal as well as the base of the proximal phalanx in order to allow fusion across the 1st metatarsophalangeal joint. Next, a 0.045 inch K-wire was driven from the medial aspect of the base of the proximal phalanx into the head of the 1st metatarsal in order to serve as temporary fixation. A large steel plate was used to make sure that the hallux was in a rectus position both in the sagittal plane as well as the frontal and transverse plane. Excellent position of the hallux was noted. Next, a CrossCHECK plate was placed atop the 1st metatarsophalangeal joint held in position with [place] wires. Utilizing standard principles and techniques, the 2 distal drill holes were drilled and two 2.7mm mm fully-threaded locking screws were driven from dorsal to plantar holding the distal aspect of the plate intact. At this point, a 3.5mm lag screw was driven from dorsal distal to proximal plantar across the 1st metatarsophalangeal joint through the plate system with excellent compression noted after careful removal of the olive wire and temporary fixation from the 1st metatarsophalangeal joint. Next, 2 prox
--- NOTE | 2023-04-02 07:17 | WPDHPUPDATE1 ---
History and Physical Update Update Date/Time: 04/02/23 07:17 History and Physical has been reviewed, including an updated exam of the patient. There are NO changes in the patient's condition. Risks, benefits, and alternatives have been discussed and questions answered. Patient agrees to proceed with procedure.
[2023-04-02] MEDS: LACTATED RINGERS 1,000 ML 30 ML IV CONT (10:11)
--- NOTE | 2023-04-02 10:35 | WPDANESEPPF ---
Anes - Initial Pre Proc Eval Procedure: Operation Date: 04/02/23 11:00 Proposed Procedures p Arthrodesis of First Metatarsal Phalangeal Joint Right Foot - Aldo Ballard JR, MD Date/Time: 04/02/23 10:35 Surgeon: Aldo Ballard JR, MD Pre Op Diagnosis: bunion right foot Patient Data Age: 62 Gender: F Height: 1.6 m Weight: 64.4 kg Last Vital Signs Temp 36.6 C 04/02/23 10:18 Pulse 81 04/02/23 10:18 Resp 16 04/02/23 10:18 BP 136/77 04/02/23 10:18 Pulse Ox 99 04/02/23 10:18 O2 Del Method Room Air 04/02/23 10:18 Allergies Allergy/AdvReac Type Severity Reaction Status Date / Time levofloxacin AdvReac Mild leg pain Verified 04/02/23 09:32 Home Medications Medication Instructions Recorded Confirmed Type cetirizine 10 mg tablet (All Day 10 mg PO DAILY PRN allergy symptoms 01/03/20 04/02/23 History Allergy (cetirizine)) cyanocobalamin (vitamin B-12) 1,000 mcg PO DAILY 02/06/21 04/02/23 History 1,000 mcg tablet cholecalciferol (vitamin D3) 125 5,000 unit PO DAILY 02/26/21 04/02/23 History mcg (5,000 unit) capsule bupropion HCl 300 mg 24 hr tablet, 300 mg PO QAM #90 tabs 08/11/21 04/02/23 Rx extended release (Wellbutrin XL) aripiprazole 2 mg tablet (Abilify) 2 mg PO DAILY #30 tabs 04/29/22 03/24/23 Rx atorvastatin 10 mg tablet 10 mg PO DAILY #90 tabs 04/29/22 03/24/23 Rx buspirone 15 mg tablet 15 mg PO BID #180 tabs 04/29/22 04/02/23 Rx irbesartan 150 mg tablet 150 mg PO DAILY #90 tabs 04/29/22 04/02/23 Rx albuterol sulfate 90 mcg/actuation 2 inh inhalation QID PRN shortness 06/19/22 04/02/23 Rx aerosol inhaler of breath or wheezing #25.5 grams tiotropium 2.5 mcg-olodaterol 2.5 2 puff inhalation DAILY #12 grams 08/07/22 04/02/23 Rx mcg/actuation mist for inhalation (Stiolto Respimat) levothyroxine 50 mcg tablet 50 mcg PO . q.a.m. #90 tabs 11/03/22 04/02/23 Rx alprazolam 0.5 mg tablet 0.5 mg PO TID PRN anxiety #90 tabs 12/28/22 04/02/23 Rx calcium carbonate 600 mg calcium 600 mg PO DAILY 01/01/23 04/02/23 History (1,500 mg) tablet (Calcium) multivitamin with minerals-folic 1 tablet PO DAILY 01/01/23 04/02/23 History acid 0.4 mg tablet Patient hx anesthesia problems: none Family hx anesthesia problems: none Results Review: All pre-operative results and documents have been reviewed as part of the pre-operative evaluation. [facility] Past Medical History Medical History Abnormal fasting glucose (08/04/21) glucose 104 on 08/04/2021. Fasting glucose 102 with hemoglobin A1c 5.0 on 12/14/2022. Acute bronchitis Acute non-recurrent maxillary sinusitis BMI 25.0-25.9,adult BMI 27.0-27.9,adult BMI 28.0-28.9,adult Boils of multiple sites (~09/2021) Breast cancer screening by mammogram Bunion of great toe of right foot Cellulitis of left foot Chronic anxiety Chronic cough PFT 03/26/2022 with mild obstructive defect without improvement with bronchodilator. chest x-ray on 02/14/2022 with stable mild scarring of the apices with old granulomatous disease with calcified lung nodule and left hilar lymph node, unchanged. 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 Calcium normal at 9.4 with ionized calcium 5.0 and PTH normal at 25 on 03/06/2021.Calcium normal at 9.9 on 08/04/2021. Hypokalemia Hypothyroidism, unspecified TSH 1.98, free T4 1.3 on 08/04/2021. TSH 1.27 with free T4 1.3 on 12/14/2022. Mixed hyperlipidemia Total cholesterol 165, triglycerides 55, HDL 102, LDL 49 on 08/04/2021. Total cholesterol 138, triglycerides 70, HDL 69, LDL 54 with ratio 2.0 on 12/14/2022. 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
--- NOTE | 2023-04-02 10:45 | WPDANESPNB ---
Anes - Peripheral Nerve Block Date/Time: 04/02/23 10:45 I have discussed with the patient/family/POA the placement of a peripheral nerve block for post-operative pain management, including associated risks, benefits, complications, and side effects. Alternative methods of post-operative analgesia were detailed. Questions were solicited and answers provided to the satisfaction of the patient/family/POA. Time-Out: A pre-procedural Time-Out was completed immediately before starting the procedure and confirmed: Patient Identification, Site, Procedure, Patient Position and the Availability of Requisite Equipment. Clinical Indications: Acute post-operative pain management requested by the operative surgeon. Nerve Block Insertion Note Anes-nerve block: posterior fossa sciatic right and other (saphenous) Patient position: supine Skin prep: chlorhexidine Needle: 22 gauge, stimulating, insulated echogenic needle. Needle length: 80 mm Technique: nerve stimulation lost at (mA) (0.4) Injectate: bupivacaine 0.5% with epi 5 mcg/ml (15cc no epi sciatic, 15cc no epi saphenous) and dexamethasone (mg) (8) Observations: tolerated well Complications: none Procedure start time:: 1039 Procedure end time:: 1046
[2023-04-02] MEDS: ceFAZolin 2 GM/D5W 50 ML 2 GM/50 ML BAG IVPB (11:17)
[2023-04-02] MEDS: oxyCODONE HCL (*CRX) 5 MG TAB IR PO (13:36)
== END 2023-04-02 14:03 | disposition home or self-care (01) ==
PROVIDERS: PCP Family Medicine; Visit Provider Podiatrist Foot & Ankle Surgery
PROC: (CPT 28750; principal; 2023-04-02 11:00)
DX: M21.611 Bunion of right foot (principal); M19.071 Primary osteoarthritis, right ankle and foot; G89.18 Other acute postprocedural pain; F41.9 Anxiety disorder, unspecified; E03.9 Hypothyroidism, unspecified; E78.2 Mixed hyperlipidemia; D51.9 Vitamin B12 deficiency anemia, unspecified; E55.9 Vitamin D deficiency, unspecified; F32.A Depression, unspecified; I10 Essential (primary) hypertension; J44.9 Chronic obstructive pulmonary disease, unspecified; Z79.51 Long term (current) use of inhaled steroids; Z87.891 Personal history of nicotine dependence; F12.90 Cannabis use, unspecified, uncomplicated
CPT/HCPCS: 28750; 64445; 64450; 99199; A9270; C1713; J0330; J0690; J1100; J1200; J2250; J2405; J2704; J3010; J7120

== ENCOUNTER 2023-10-05 09:53 | Outpatient (CLI) | payer OTHER, SELFPAY ==
--- NOTE | ~2023-10-05 | MM_ITS ---
EXAMINATION: MM screening vinny BI w eliot HISTORY: Screening TECHNIQUE: Craniocaudal and mediolateral oblique 3-D tomosynthesis images were obtained and synthetic 2-D images were generated. CAD analysis was submitted and interpreted. COMPARISON: Comparison to multiple prior studies sequentially, with oldest reviewed study dated 04/04. BREAST PARENCHYMAL COMPOSITION: Not dense: There are scattered areas of fibroglandular density. FINDINGS: There is no evidence of suspicious mass, calcification, or architectural distortion to sugg est malignancy in either breast. There has been no suspicious interval change. IMPRESSION: 1. No mammographic evidence of malignancy. 2. Recommend routine screening mammography in one year. BI-RADS Category 1: Negative Reviewed, dictated and finalized at location A.
== END 2023-10-05 09:54 | disposition home or self-care (01) ==
PROVIDERS: PCP Family Medicine; Visit Provider Family Medicine
DX: Z12.31 Encounter for screening mammogram for malignant neoplasm of breast (principal)
CPT/HCPCS: 77063; 77067

== ENCOUNTER 2024-11-20 11:25 | Emergency (ER) | payer OTHER, SELFPAY ==
--- NOTE | ~2024-11-20 | CT_ITS ---
CT cervical spine wo con Ordering provider: Daniela Hopkins PA-C History: . head injury . Comparison: None. Technique: CT of the cervical spine was performed without contrast. Sagittal and coronal reformatted images were also obtained and reviewed. Automated exposure control and iterative reconstruction uriel hnique were employed. The dose-length product was 154.45 mGy-cm. FINDINGS: VERTEBRAE: No subluxation or acute fracture. The occipital condyles are intact. DISC SPACES: Narrowing of the disc C5-C6 and C6-C7. Multilevel facet joint disease. Multilevel uncove rtebral joint osteoarthritic changes. Multilevel intervertebral foraminal narrowing. PARASPINOUS SOFT TISSUES: Normal. IMPRESSION: No acute osseous abnormality cervical spine. Multilevel degenerative disc disease. Reviewed, dictated and finalized at location A.
--- NOTE | ~2024-11-20 | CT_ITS ---
EXAMINATION: CT brain wo con DATE: 11/20/2024 13:07 INDICATION: Head injury presenting with headache and vomiting. TECHNIQUE: Computed tomography (CT) of the head was performed without intravenous contrast. Sagittal and coronal reconstructions were performed. The mA was adjusted according to patient size. Iterative reconstruction technique was employed. The dose-length product was 605.33 mGy-cm. COMPARISON: head CT and brain MR dated 01/27/2016 FINDINGS: No fracture. No acute intracranial hemorrhage, acute infarction or abnormal extra axial fluid collect ion. There is mild scattered white matter hypoattenuation consistent with chronic small vessel ischem ic disease. Ventricles are normal and symmetric. Symmetric prominence of the sulci consistent with mi ld age-appropriate diffuse cerebral volume loss. No mass/mass effect. The orbits, paranasal sinuses a nd mastoid air cells are normal. IMPRESSION: 1. No fracture or acute intracranial process. 2. Age-related changes including mild diffuse volume loss and mild scattered white matter hypoattenua tion consistent with chronic small vessel ischemic disease. Reviewed, dictated and finalized at location A. IMPRESSION: 1. No fracture or acute intracranial process. 2. Age-related changes including mild diffuse volume loss and mild scattered wh ite matter hypoattenuation consistent with chronic small vessel ischemic diseas e.
[2024-11-20 11:55] VITALS: BP 153/87; PULSE 78; RESP 16; TEMP 36.4; O2SAT 98
--- OUTSIDE RECORDS SUMMARY | 2024-11-20 12:01 | XMS_ITS | Clinical Summary ---
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 Gender Identity Not on file Sexual Orientation Not on file Plan of Treatment Health Maintenance Due Date Last Done Comments Hepatitis C Virus (HCV) Screening 1961 Pap Smear 1982 Cervical Cancer Screening (CCS) 12/17/1991 HPV/Cotest 12/17/1991 Hepatitis B Immunization (2 of 3 - 19+ 3-dose series) 03/01/2006 02/01/2006 Colonoscopy 2006 Colorectal Cancer Screening 2006 Cologuard 12/17/2011 Immunochemical Fecal Occult Blood 12/17/2011 Mammogram 12/17/2011 Zoster Immunization (2 of 2) 06/30/2020 05/05/2020 Pneumococcal Immunization (50+ years) (2 of 2 - PCV) 04/21/2021 04/21/2020, 04/18/2015 Influenza Immunization (#1) 03/05/202404/04, 05/28/2019, 04/24/2018, Additional history exists SARS-COV-2 Immunization ( season) 2024 Respiratory Syncytial Virus (RSV) Immunization (Adult) (1 - 1-dose 75+ series) 2036 DTaP/Tdap/Td Immunization Discontinued 04/21/2020 Pneumococcal Immunization Combined Discontinued 04/21/2020, 04/18/2015 TdaP Immunization Completed 04/21/2020 Meningococcal Immunization (ACWY) Aged Out No longer eligible based on patient's age to complete this topic Rotavirus Immunization Aged Out No lo nger eligible based on patient's age to complete this topic
--- OUTSIDE RECORDS SUMMARY | 2024-11-20 12:01 | XMS_ITS | Patient Health Record ---
Author Organization [facility] Address [address] [place] [address] Care Team Providers Care Hot End Operator Name Role Phone Arti Parks Unavailable [phone] Migration, Provider Unavailable Unavailable Reason For Referral No Information Medications Medication SIG (Take, Route, Frequency, Duration) Notes Start Date End Date Status buPROPion HCl ER (XL) 300 MG Oral 08/16/2023 Active Synthroid 50 MCG Oral 08/16/2023 Ac tive Mupirocin 2% External 08/16/2023 Active Benzonatate 200 MG Oral 08/16/2023 Active Atorvastatin Calcium 10 MG Oral 08/16/2023 Active ALPRAZolam 0.5 MG Oral 08/16/2023 A ctive Anoro Ellipta 62.5-25 MCG/INH Inhalation 08/16/2023 Active Stiolto Respimat 2.5-2.5 MCG/ACT Inhalation 08/16/2023 Active Irbesartan 150 MG Oral 08/16/2023 A ctive busPIRone HCl 15 MG 1 tablet Oral Twice a day for 90 days please schedule appt Active ProAir HFA 108 (90 Base) MCG/ACT Inhalation 08/16/2023 Active Immunizations Vaccine Route Administration Date Status Comme nts Pfizer Biontech Covid-19 Vac cine 2nd dose Unknown 09/13/2020 Administered Pfizer Biontech Covid-19 Vac cine 2nd dose Unknown 10/07/2020 Administered Pfizer Biontech Covid-19 Vac cine 2nd dose Unknown 05/24/2021 Administered Social History Sex Assigned At : Social History Observation Description Sex Assigned At Female Encounters Encounter Location Date Provider Diagnosis [facility] [address] [address] 11/21/2023 Provider Migration [facility] [address] [facility] [address] [address] 11/22/2023 Provider Migration [facility] [address] [facility] [address] [facility] [address] [place] [address] 04/26/2024 Arti Parks [facility] [address] [facility] [address] [address] 05/10/2024 Arti Parks [facility] [address] [facility] [address] [address] 05/11/2024 Arti Parks Plan Of Treatment No Information Insurance Providers Payer Name Payer Address Payer Phone Subscriber Number Group Number Insured Name Patient Relationship to Insured Coverage Start Date Coverage End Date [facility] [address] [address] [place] [address] [phone] [id number] MARIAELNEA DUONG Self - patient is the insured
--- OUTSIDE RECORDS SUMMARY | 2024-11-20 12:01 | XMS_ITS | Clinical Summary ---
Author Organization [facility] Address [address] [place] [address] Care Team Providers Care Marine Designer Name Role Phone Bakari Mercedes MD Primary Care Provider [phone] Allergies Active Allergy Reactions Criticality Noted Date Comments Levofloxacin Other (see comment) 02/04/2021 Muscle aches Social History Tobacco Use Types Packs/Day Years Used Date Smoking Tobacco: Former Smokeless Tobacco: Never Alcohol Use Standard Drinks/Week Comments Yes 0 (1 standard drink = 0.6 oz pur e alcohol) Comments Unknown Sex and Gender Information Value Date Recorded Sex Assigned at Not on file Legal Sex Female 9:35 AM CDT Gender Identity Not on file Sexual Orientation Not on file Last Filed Vital Signs Vital Sign Reading Time Taken Comments Blood Pressure 146/88 02/04/2021 11:11 AM CDT Pulse 70 02/04/2021 11:11 AM CDT Temperature 36.8 C (98.2 F) 02/04/2021 11:11 AM CDT Respiratory Rate 14 02/04/2021 11:11 AM CDT Oxygen Saturation 99% 02/04/2021 11:11 AM CDT Inhaled Oxygen Concentration - - Weight 65 kg (143 lb 4.8 oz) 02/04/2021 9:50 AM CDT Height 160 cm (5' 3 ) 02/04/2021 9:47 AM CDT Body Mass Index 25.38 02/04/2021 9:47 AM CDT Plan of Treatment Health Maintenance Due Date Last Done Comments Colorectal Cancer Screening Colonoscopy (10 Years) 1961 Annual Physical 1964 Hepatitis C 12/17/1979 DTaP, Tdap and Td Vaccines ( 1 - Tdap) 1980 Mammogram Screening 2001 Pneumococcal Vaccine: 50+ Years (1 of 1 - PCV) 12/17/2011 Cervical Cancer Screening Pa p Smear (Age 30 to 64) Every 3 Years 06/10/2020 06/10/2017 Cervical Cancer Screening Pa p with HPV Testing (Age 30 to 64) Every 5 Years 06/10/2022 06/10/2017 Cervical Cancer Screening wi th HPV 06/10/2022 COVID-19 Vaccine (3 - 2023-2 5 season) 2024 10/07/2020, 09/13/2020 RSV Immunization or 60+ Years (1 - 1-dose 75+ series) 2036 Zoster Vaccines Completed 07/09/2020, 05/05/2020 Meningococcal B Vaccine Aged Out No l onger eligible based on patient's age to complete this topic Meningococcal Vaccine Aged Out No linda kang eligible based on patient's age to complete this topic RSV Immunizations Under 20 Months Aged Out No longer eligible b ased on patient's age to complete this topic Insurance [facility] Care Teams Marine Designer Relationship Specialty Start Date End Date Bakari Mercedes MD [address] [place] [address] [address] [place] [address] PCP - General FAMILY PRACTICE 02/04/21
--- NOTE | 2024-11-20 12:42 | ED_ITS ---
HPI - Altered Mental Status General Chief Complaint: Altered Mental Status <Daniela Hopkins PA-C - Last Filed: 11/22/24 17:09> Stated Complaint: Sudden memory loss-headache <Daniela Hopkins PA-C - Last Filed: 11/22/24 17:09> Time Seen by Provider: 11/20/24 12:43 <Daniela Hopkins PA-C - Last Filed: 11/22/24 17:09> Focused HPI: This is a 63 year old female that presents to the ER for memory loss. Reports ongoing since she woke up this morning. Reports associated headache, nausea, vomiting. Reports she hit her head Wednesday morning. Reports she was getting in the truck and hit her head on the top of the door frame. She is not on anticoagulation. Denies vision changes, numbness, weakness. GENERAL: Well-appearing, well-nourished, and in no acute distress. HEAD: Normocephalic, atraumatic. CHEST: Clear to auscultation. No respiratory distress. HEART: Regular rate and rhythm. NEURO: Alert and oriented x3. Patient screened in triage and initial orders placed. Additional care and disposition to be based upon diagnostic testing and treatment. <Daniela Hopkins PA-C - Last Filed: 11/22/24 17:09> History of Present Illness HPI narrative: I agree with the above HPI <Syed Fernandez MD - Last Filed: 11/20/24 21:34> Related Data Home Medications: Home Medications Medication Instructions Recorded Confirmed Last Taken Type cetirizine 10 mg tablet (All Day 10 mg PO DAILY PRN allergy symptoms 01/03/20 06/12/24 04/01/23 History Allergy (cetirizine)) cyanocobalamin (vitamin B-12) 1,000 mcg PO DAILY 02/06/21 06/12/24 03/26/23 History 1,000 mcg tablet cholecalciferol (vitamin D3) 125 5,000 unit PO DAILY 02/26/21 06/12/24 03/26/23 History mcg (5,000 unit) capsule calcium carbonate (Calcium 600) 600 mg PO DAILY 01/01/23 06/12/24 03/26/23 History multivitamin with minerals-folic 1 tablet PO DAILY 06/06/12/24 03/26/23 History acid 0.4 mg tablet <Daniela Hopkins PA-C - Last Filed: 11/22/24 17:09> Allergies/Adverse Reactions: Allergies Allergy/AdvReac Type Severity Reaction Status Date / Time levofloxacin AdvReac Mild leg pain Verified 11/20/24 11:58 <Daniela Hopkins PA-C - Last Filed: 11/22/24 17:09> Review of Systems Review of Systems: All systems reviewed & are unremarkable except as noted in HPI and below <Syed Fernandez MD - Last Filed: 11/20/24 21:34> [facility] Past Medical History Medical History: Medical History (Updated 11/22/24 @ 17:09 by Daniela Hopkins PA-C) Dysuria BMI 24.0-24.9, adult BMI 26.0-26.9,adult Polyp of colon (01/08/23) 3 small Hyperplastic polyps of the descending colon 01/08/2023 with recheck in 5 years. Overweight (BMI 25.0-29.9) BMI 28.0-28.9,adult Breast cancer screening by mammogram mammogram normal 04/21/2021. Normal 10/05/2023. Chronic cough PFT 03/26/2022 with mild obstructive defect without improvement with bronchodilator. chest x-ray on 02/14/2022 with stable mild scarring of the apices with old granulomatous disease with calcified lung nodule and left hilar lymph node, unchanged. Bunion of great toe of right foot Treated surgically 04/02/2023. Hallux valgus with bunions of left foot Treated surgically. Boils of multiple sites (~09/2021) Abnormal fasting glucose (08/04/21) glucose 104 on 08/04/2021. Fasting glucose 102 with hemoglobin A1c 5.0 on 12/14/2022. Glucose 95 with hemoglobin A1c 5.1 on 11/02/2023. 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 Calcium normal at 9.4 with ionized calcium 5.0 and PTH normal at 25 on 03/06/2021.Calcium normal at 9.9 on 08/04/2021. BMI 25.0-25.9,adult Vitamin D deficiency, unspecified DEXA bone density on 06/14/2019 normal with T-score -1.0 of the spine and 0 at the hips. Vitamin-D level normal at 36 on 03/06/2021. Level normal at 33 on 12/14/2022. Level normal at 34 on 11/02/2023. Vitamin B12 deficiency anemia vitamin B12 1004 with hemoglobin 13.6 on 08/04/2021. Level normal at 1193 with folic acid 13.4 and hemoglobin 12.9 on 12/14/2022. Level normal at 1787 with hemoglobin 13.8 on 11/02/2023. Gross hematuria Hypokalemia Acute bronchitis Acute non-recurrent maxillary sinusitis Cellulitis of left foot Chronic anxiety Chronic depression Mixed hyperlipidemia Total cholesterol 165, triglycerides 55, HDL 102, LDL 49 on 08/04/2021. Total cholesterol 138, triglycerides 70, HDL 69, LDL 54 with ratio 2.0 on 12/14/2022. Cholesterol 133, triglycerides 70, HDL 62, LDL 47 with ratio 1.9 on 11/02/2023. COPD (chronic obstructive pulmonary disease) Seasonal allergic rhinitis Hypothyroidism, unspecified TSH 1.98, free T4 1.3 on 08/04/2021. TSH 1.27 with free T4 1.3 on 12/14/2022. TSH 1.18 with free T4 at 1.5 on 11/02/2023. Essential (primary) hypertension <Daniela Hopkins PA-C - Last Filed: 11/22/24 17:09> Family History Family History: Family History Grandparent Family history of tuberculosis Acute myocardial infarction Family history of malignant neoplasm Carcinoma of colon Mother Patient's mother is in good health Family history of dementia Father Acute myocardial infarction Carcinoma of colon, Onset Age: 56 Sibling Family history of malignant neoplasm, Onset Age: 36 <Daniela Hopkins PA-C - Last Filed: 11/22/24 17:09> Social History Social History: Social History Smoking packs per day: 3 Smoking cigarettes per day: 60.0 Years smoked: 40 Smoking pack-years: 120.00 Smoking status: Former smoker Tobacco type: cigarettes Second hand tobacco smoke exposure: No Smoking end date: 07/05/09 Alcohol intake: former Alcohol use details: quit 6 months ago Substance use: current Substance use type: marijuana Last use: Daily Lack of Transportation: No Lack of Food: Never True Current Housing: I Have Housing Concerned About Future Housing: No Difficulty Paying Gas/Electric Bills: No Difficulty Paying for Meds: No Currently Unemployed: No Education: High School Diploma/GED Difficulty w/ Childcare or Family Care: No Living arrangements: with family Spiritual care concerns: No <Daniela Hopkins PA-C - Last Filed: 11/22/24 17:09> Exam Narrative: APPEARANCE: Well appearing, no pain, no distress, well-nourished. HEAD: normocephalic, atraumatic. EYES: PERRLA/EOMI, conjunctivae clear. NOSE: Normal no drainage EARS:TMS clear with good light reflex. THROAT: Pharynx clear, no exudate. NECK: Supple. No adenopathy, no masses. RESPIRATORY: Airway patent, respirations nonlabored. Clear to auscultation bilaterally, no rales, rhonchi, wheezing. CARDIOVASCULAR: Regular rate and rhythm without murmurs rubs or gallops. ABDOMINAL: Soft, nontender, nondistended, normal bowel sounds MUSCULOSKELETAL: Moves all extremities. Strength/ROM intact, No edema, No calf tenderness. NEURO: Alert. Cranial nerves II through XII intact. Good gait. Good coordination SKIN: Warm, dry. Normal Color <Syed Fernandez MD - Last Filed: 11/20/24 21:34> Course Vital Signs Vital signs: Vital Signs Temperature 97.6 F 11/20/24 11:55 Pulse Rate 78 11/20/24 11:55 Respiratory Rate 16 11/20/24 11:55 Blood Pressure 153/87 H 11/20/24 11:55 Pulse Oximetry 98 11/20/24 11:55 Temperature 98.2 F 11/20/24 15:42 Pulse Rate 73 11/20/24 17:51 Respiratory Rate 18 11/20/24 17:51 Blood Pressure 133/61 11/20/24 17:51 Pulse Oximetry 99 11/20/24 17:51 Oxygen Delivery Room Air 11/20/24 15:50 <Daniela Hopkins PA-C - Last Filed: 11/22/24 17:09> Vital Signs Temperature 97.6 F 11/20/24 11:55 Pulse Rate 78 11/20/24 11:55 Respiratory Rate 16 11/20/24 11:55 Blood Pressure 153/87 H 11/20/24 11:55 Pulse Oximetry 98 11/20/24 11:55 Temperature 98.2 F 11/20/24 15:42 Pulse Rate 73 11/20/24 17:51 Respiratory Rate 18 11/20/24 17:51 Blood Pressure 133/61 11/20/24 17:51 Pulse Oximetry 99 11/20/24 17:51 Oxygen Delivery Room Air 11/20/24 15:50 <Syed Fernandez MD - Last Filed: 11/20/24 21:34> MDM - Altered Mental Status MDM Narrative Medical decision making narrative: 63-year-old female present to the emergency department for evaluation for memory issues. Patient felt that her memory issues were worsened this morning. At time of evaluation patient is alert and appropriate to person place and time and patient is able to recall the thing she could not recall this morning. Head CT was negative for acute intracranial abnormality patient's cervical spine was also negative. Patient was treated with medications for a migraine cocktail patient states she does feel more clear minded and headache is now resolved. This could be consistent with a complex migraine versus a concussion. Patient was encouraged close follow-up with her primary care physician for additional outpatient testing for dementia. All questions concerns were addressed and patient was well-appearing at time of discharge. <Syed Fernandez MD - Last Filed: 11/20/24 21:34> Differential Diagnosis Differential diagnosis: Likely altered mental status, delirium, dementia and subarachnoid hemorrhage <Syed Fernandez MD - Last Filed: 11/20/24 21:34> Lab Data Attestation: I reviewed the patient's lab results. <Syed Fernandez MD - Last Filed: 11/20/24 21:34> Imaging Data Radiologist's impression: Impressions Head CT 11/20/24 13:13 IMPRESSION: 1. No fracture or acute intracranial process. 2. Age-related changes including mild diffuse volume loss and mild scattered white matter hypoattenuation consistent with chronic small vessel ischemic disease. Cervical Spine CT 11/20/24 13:23 IMPRESSION: No acute osseous abnormality cervical spine. Multilevel degenerative disc disease. <Syed Fernandez MD - Last Filed: 11/20/24 21:34> Critical Care Time Critical Care Time Critical Care Time: No <Daniela Hopkins PA-C - Last Filed: 11/22/24 17:09> Discharge Plan Discharge Clinical Impression: Head injury Qualifiers: Encounter type: initial encounter Qualified Code(s): S09.90XA - Unspecified injury of head, initial encounter Concussion Qualifiers: Encounter type: initial encounter Loss of consciousness presence/duration: without LOC Qualified Code(s): S06.0X0A - Concussion without loss of consciousness, initial encounter <Daniela Hopkins PA-C - Last Filed: 11/22/24 17:09> Patient Disposition: Home <Daniela Hopkins PA-C - Last Filed: 11/22/24 17:09> Condition: Stable <Daniela Hopkins PA-C - Last Filed: 11/22/24 17:09> Instructions: Antibiotic Form, Concussion (ED), Head Injury (DC) <Daniela Hopkins PA-C - Last Filed: 11/22/24 17:09> Additional Instructions: Have close follow-up with your primary care physician. If you have any worsening symptoms then please call or return to the emergency department. <Daniela Hopkins PA-C - Last Filed: 11/22/24 17:09> Patient Language: Nigerien <Daniela Hopkins PA-C - Last Filed: 11/22/24 17:09> Prescriptions: No Action cyanocobalamin (vitamin B-12) 1,000 mcg tablet 1,000 mcg PO DAILY cetirizine [All Day Allergy (cetirizine)] 10 mg tablet 10 mg PO DAILY PRN (Reason: allergy symptoms) calcium carbonate [Calcium 600] 600 mg calcium (1,500 mg) Tablet 600 mg PO DAILY multivit with min-folic acid 0.4 mg Tablet 1 tablet PO DAILY cholecalciferol (vitamin D3) 125 mcg (5,000 unit) capsule 5,000 unit PO DAILY irbesartan 150 mg tablet 150 mg PO DAILY Qty: 90 3RF aripiprazole [Abilify] 2 mg tablet 2 mg PO DAILY Qty: 90 3RF bupropion HCl [Wellbutrin XL] 300 mg tablet extended release 24 hr 300 mg PO QAM Qty: 90 3RF bupropion HCl [Wellbutrin XL] 150 mg tablet extended release 24 hr 150 mg PO QAM Qty: 90 3RF atorvastatin 10 mg tablet 10 mg PO DAILY Qty: 90 3RF Patient Comments: PT TAKES AT HS alprazolam 0.5 mg tablet 0.5 mg PO TID PRN (Reason: anxiety) Qty: 90 5RF albuterol sulfate 90 mcg/actuation HFA aerosol inhaler 2 inh inhalation QID PRN (Reason: shortness of breath or wheezing) Qty: 25.5 3RF Stiolto Respimat 2.5-2.5 mcg/actuation mist 2 puff inhalation DAILY Qty: 12 3RF buspirone 15 mg tablet 15 mg PO BID Qty: 180 3RF levothyroxine 50 mcg tablet 50 mcg PO . q.a.m. Qty: 90 3RF <Daniela Hopkins PA-C - Last Filed: 11/22/24 17:09> Follow-up/Referrals: Bakari Mercedes MD [Primary Care Provider] - <Daniela Hopkins PA-C - Last Filed: 11/22/24 17:09>
[2024-11-20 15:42] VITALS: BP 140/64; PULSE 79; RESP 19; TEMP 36.8; O2SAT 99
[2024-11-20 15:50] VITALS: O2SAT 100
--- OUTSIDE RECORDS SUMMARY | 2024-11-20 16:13 | XMS_ITS | Clinical Summary ---
Author Organization [facility] Care Team Providers Care Inspector Dials Name Role Phone Unavailable Primary Care Provider Unavailabl e Social History Tobacco Use Types Packs/Day Years Used Date Smoking Tobacco: Never Assessed Comments Unknown Sex and Gender Information Value Date Recorded Sex Assigned at Not on file Legal Sex Female 3:[address] RESEARCHER Gender Identity Not on file Sexual Orientation [...]
--- OUTSIDE RECORDS SUMMARY | 2024-11-20 16:13 | XMS_ITS | Clinical Summary ---
Author Organization [facility] Address [address] [place] [address] Care Team Providers Care Artist Consultant Name Role Phone Bakari Mercedes MD Primary Care Provider [phone] Allergies Active Allergy Reactions Criticality Noted Date [...] patient's age to complete this topic Insurance [facility] Care Teams Artist Consultant Relationship Specialty Start Date End Date Bakari Mercedes MD [address] [place] [address] [address] [place] [address] PCP - General FAMILY PRACTICE 02/04/21
[2024-11-20] MEDS: SODIUM CHLORIDE 0.9% IV 1,000 ML 999 ML IV CONT (17:41)
[2024-11-20] MEDS: diphenhydrAMINE HCl INJ 50 MG/ML VIAL 25 MG IV PUSH (17:42)
[2024-11-20] MEDS: PROCHLORPERAZINE EDISYLATE 10 MG/2 ML VIAL IV PUSH (17:43)
[2024-11-20] MEDS: KETOROLAC 15 MG/ML VIAL (*BKC) IV PUSH (17:44)
[2024-11-20 17:51] VITALS: BP 133/61; PULSE 73; RESP 18; O2SAT 99
== END 2024-11-20 19:00 | disposition home or self-care (01) ==
PROVIDERS: Emergency Provider Emergency Medicine; PCP Family Medicine
DX: S06.0X0A Concussion without loss of consciousness, initial encounter (principal); I10 Essential (primary) hypertension; J44.9 Chronic obstructive pulmonary disease, unspecified; E66.3 Overweight; Z68.26 Body mass index [BMI] 26.0-26.9, adult; E55.9 Vitamin D deficiency, unspecified; E78.2 Mixed hyperlipidemia; E03.9 Hypothyroidism, unspecified; F41.9 Anxiety disorder, unspecified; F32.A Depression, unspecified; Z86.0102 Personal history of hyperplastic colon polyps; Z87.891 Personal history of nicotine dependence; Z79.899 Other long term (current) drug therapy; M50.322 Other cervical disc degeneration at C5-C6 level; M48.02 Spinal stenosis, cervical region
CPT/HCPCS: 70450; 72125; 96361; 96374; 96375; 99284; J0780; J1200; J1885; J7030

== ENCOUNTER 2025-02-19 08:19 | Outpatient (CLI) | payer OTHER, SELFPAY ==
--- NOTE | ~2025-02-19 | MR_ITS ---
MRI of the brain Clinical History: Disorientation Technique: Axial and sagittal T1-weighted images were acquired. These were followed by axial T2-weigh steve, diffusion weighted, gradient, and FLAIR images. Findings: There is no abnormal signal in the brain parenchyma. No acute infarct, intracranial hemorrh age, or mass lesion identified. Ventricles and subarachnoid spaces are unremarkable. Orbits are unremarkable. Paranasal sinuses and m astoid air cells are clear. Major intracranial flow voids are intact. Sagittal midline structures are intact. IMPRESSION: No significant abnormality seen. Reviewed, dictated and finalized at location M.
--- OUTSIDE RECORDS SUMMARY | 2025-02-19 08:33 | XMS_ITS | Patient Health Record ---
Author Organization [facility] Address [address] [place] [address] Care Team Providers Care Registered Phlebotomist Part Time Name Role Phone Arti Parks Unavailable [phone] Reason For Referral No Information Medications Medication [...] 15 MG 1 tablet Oral Twice a day; Duration: 90 days please schedule appt Active ProAir [...] Female Encounters Encounter Location Date Provider Diagnosis [facility] [address] [place] [address] 04/26/2024 Arti Parks [facility] LOC&ALL [facility] [address] [facility] [address] [facility] [address] [place] [address] 05/10/2024 Arti Parks [facility], [facility] [address] [facility] [address] [facility] [address] [place] [address] 05/11/2024 Arti Parks Plan Of Treatment No Information Insurance Providers Payer Name Payer Address Payer Phone Subscriber Number Group Number Insured Name Patient Relationship to Insured Coverage Start Date Coverage End Date [facility] [address] [address] [place] [address] [id number] MARIAELENA DUONG Self - patient is the insured
--- OUTSIDE RECORDS SUMMARY | 2025-02-19 08:33 | XMS_ITS | Clinical Summary ---
Author Organization [facility] Care Team Providers Care Assistant Corporate Secretary Name Role Phone Unavailable Primary Care Provider Unavailabl e Social History Tobacco Use Types Packs/Day Years Used Date Smoking Tobacco: Never Assessed Comments Unknown Sex and Gender Information Value Date Recorded Sex Assigned at Not on file Legal Sex Female 3:16 PM [employer] Gender Identity Not on file Sexual Orientation Not on file Plan of Treatment Health Maintenance Due Date Last Done Comments Hepatitis C Virus (HCV) Screening 1961 Pap Smear 1982 Cervical Cancer Screening (CCS) 12/17/1991 HPV/Cotest 12/17/1991 Hepatitis B Immunization (2 of 3 - 19+ 3-dose series) 03/01/2006 02/01/2006 Cologuard 2006 Colonoscopy 2006 Colorectal Cancer Screening 2006 Immunochemical Fecal Occult Blood 2006 Zoster Immunization (2 of 2) 06/30/2020 05/05/2020 Pneumococcal Immunization (50+ years) (2 of 2 - PCV) 04/21/2021 04/21/2020, 04/18/2015 SARS-COV-2 Immunization ( season) 2024 Influenza Immunization (#1) 03/05/202504/04, 05/28/2019, 04/24/2018, Additional history exists Respiratory Syncytial Virus (RSV) Immunization (Adult) (1 - 1-dose 75+ series) 2036 DTaP/Tdap/Td Immunization Discontinued 04/21/2020 Pneumococcal Immunization Combined Discontinued 04/21/2020, 04/18/2015 TdaP Immunization Completed 04/21/2020 Human Papillomavirus (HPV) Immunization Aged Out No longer eligible based on patient's age to complete this topic Meningococcal Immunization (ACWY) Aged Out No longer eligible based on patient's age to complete this topic Rotavirus Immunization Aged Out No lo nger eligible based on patient's age to complete this topic
== END 2025-02-19 08:20 | disposition home or self-care (01) ==
PROVIDERS: PCP Family Medicine; Visit Provider Family Medicine
DX: R41.0 Disorientation, unspecified (principal); R42 Dizziness and giddiness
CPT/HCPCS: 70551